=== PATIENT | female | born 1970 | race Caucasian/White ===

== ENCOUNTER → 2022-05-07 12:58 | Outpatient (CLI) | payer OTHER, SELFPAY ==
[2022-05-07 20:30] LABS: C-Reactive Protein Quant 0.6 mg/dL (<1.0)
[2022-05-07 20:41] LABS: Erythrocyte Sedimentation Rate 12 MM/HR (0-20)
[2022-05-07 20:42] LABS: Rheumatoid Factor < 8.6 IU/mL (<12.0)
[2022-05-09 16:22] LABS: ANA Screen, IFA Positive (.)
[2022-05-11 12:01] LABS: SS A Ro Sjogrens Antibody < 0.2 AI (0.0-0.9); SS B La Sjogrens Antibody 2.5 AI (0.0-0.9)
== END ==
PROVIDERS: PCP Family Medicine; Visit Provider Family Medicine
DX: M25.641 Stiffness of right hand, not elsewhere classified (principal); M79.641 Pain in right hand; M25.642 Stiffness of left hand, not elsewhere classified; M79.642 Pain in left hand
CPT/HCPCS: 85651; 86038; 86140; 86235; 86430

== ENCOUNTER → 2024-02-26 09:26 | Outpatient (CLI) | payer OTHER, SELFPAY ==
[2024-02-26 19:44] LABS: Add Manual Diff / Slide Review NO; Basophils Absolute Auto 100 /uL (0-100); Basophils Percent Auto 1.1 % (0-2); Eosinophils Absolute Auto 100 /uL (0-450); Eosinophils Percent Auto 2.1 % (2-4); Hematocrit 40.9 % (36-46); Hemoglobin 13.6 g/dL (12.0-16.0); Lymphocytes Absolute Auto 2200 /uL (1100-4500); Lymphocytes Percent Auto 36.2 % (25-40); Mean Corpuscular HGB Conc 33.4 % (30-36); Mean Corpuscular Hemoglobin 31.3 PG (26-34); Mean Corpuscular Volume 93.7 fL (80-100); Monocytes Absolute Auto 400 /uL (0-900); Monocytes Percent Auto 7.1 % (3-14); Neutrophils Absolute Auto 3200 /uL (1500-7000); Neutrophils Percent Auto 53.5 % (50-75); Platelet Count 276 X10^3/uL (150-400); Red Blood Cell Count 4.36 X10^6/uL (4.0-5.2); Red Cell Distribution Width 12.8 % (11.6-14.8)
[2024-02-26 19:47] LABS: BUN Creatinine Ratio 20.3 (6-22); Blood Urea Nitrogen 13 mg/dL (7-17); Calcium 9.6 mg/dL (8.4-10.2); Carbon Dioxide 29 mmol/L (22-32); Chloride 107 mmol/L (98-107); Cholesterol 259 mg/dL (140-199); Estimated Glomerular Filt Rate > 60 mL/min (>60); Glucose 105 mg/dL (70-100); HDL Cholesterol 56 mg/dL (40-60); HEMOLYSIS < 15 (0-50); LDL Cholesterol Calculated 166 mg/dL (<100); Potassium 4.1 mmol/L (3.4-5.1); Sodium 140 mmol/L (137-145); Triglycerides 187 mg/dL (35-150)
== END ==
PROVIDERS: PCP Family Medicine; Visit Provider Family Medicine
DX: Z13.89 Encounter for screening for other disorder (principal); Z13.6 Encounter for screening for cardiovascular disorders; Z13.0 Encounter for screening for diseases of the blood and blood-forming organs and certain disorders involving the immune mechanism; Z13.29 Encounter for screening for other suspected endocrine disorder; Z13.1 Encounter for screening for diabetes mellitus
CPT/HCPCS: 80048; 80061; 84443; 85025

== ENCOUNTER → 2024-03-04 08:49 | Outpatient (CLI) | payer OTHER, SELFPAY ==
--- NOTE | 2024-03-04 08:50 | DI.US.S_ITS ---
LIMITED ULTRASOUND OF LEFT BREAST: 03/04/2024 CLINICAL: Intermittent pain in left breast. Comparison is made to exam dated: 03/04/2024 mammogram - [facility]. Ultrasound of the left breast 2 o'clock region was performed on the area of interest. IMPRESSION: NEGATIVE There is no sonographic evidence of malignancy. There is no mammographic or sonographic abnormality seen in the left breast to correspond with the pain, however, clinical followup is recommended. Return to annual mammogram screening schedule is recommended. This exam was interpreted at Station ID: [id number]. Electronically Signed By: Keily Shoemaker M.D. lk/:03/04/2024 10:26:00 letter sent: Clinical Evaluation Ultrasound BI-RADS: 1 Negative
--- NOTE | 2024-03-04 08:50 | DI.MG.S_ITS ---
BILATERAL DIGITAL DIAGNOSTIC MAMMOGRAM 3D/2D: 03/04/2024 CLINICAL: Left breast pain. No prior exams were available for comparison. There are scattered areas of fibroglandular density in both breasts (category b / 25%-50% glandular tissue). No significant masses, calcifications, or other findings are seen in either breast. IMPRESSION: INCOMPLETE: NEEDS ADDITIONAL IMAGING EVALUATION There is no mammographic abnormality seen in the left breast to correspond with the pain, however, targeted ultrasound of the left breast is recommended and will be performed immediately following this exam. Based on Tyrer-Cuzick model (a risk assessment model), the patient's lifetime risk is 22.1% and her 10 year risk is 6.3%. If a patient has an elevated risk, a more comprehensive evaluation should be considered and/or a referral to a genetic counselor. The [employer], [employer], and NCCN Guidelines advise the consideration of Breast MRI as an adjunct to screening mammography in patients whose Lifetime risk to develop breast cancer is 20% or higher. This exam was interpreted at Station ID: [id number]. NOTE: For mammograms, a report in lay terms will be sent to the patient. Approximately 15% of breast malignancies will not be visualized mammographically. In the management of a palpable breast mass, a negative mammogram must not discourage biopsy of a clinically suspicious lesion. Electronically Signed By: Keily Shoemaker M.D. lk/:03/04/2024 09:48:02 ACR BI-RADS Category 0: Incomplete 3340F
== END ==
LOC: MAMMO 08:49
PROVIDERS: PCP Family Medicine; Referring Provider Family Medicine; Visit Provider Family Medicine
DX: R92.2 Inconclusive mammogram (principal); N64.4 Mastodynia; R92.323 Mammographic fibroglandular density, bilateral breasts
CPT/HCPCS: 76642; 77066; G0279

== ENCOUNTER 2024-06-04 07:53 | Day surgery (SDC) | payer OTHER, SELFPAY ==
[2024-06-04 08:50] VITALS: BP 107/72; PULSE 69; RESP 14; TEMP 36.8; O2SAT 99
[2024-06-04] MEDS: ONDANSETRON 4 MG/2 ML INJ IV (09:10)
--- NOTE | 2024-06-04 09:28 | P.HP_ITS ---
History of Present Illness History of Present Illness Date Patient Seen: 06/04/24 Time Patient Seen: 09:28 Chief complaint: SD Narrative: Linda is a 53-year-old woman who is here for her first screening colonoscopy. She has a grandmother who of colon cancer. She has no known first-degree family members with colon cancer. [facility] Medical History (Updated 06/04/24 @ 09:30 by Merritt Moon MD) Colon cancer screening Cellulitis Positive SHER (antinuclear antibody) Contact dermatitis Surgical History (Updated 12/29/23 @ 17:20 by Lulu Dial MD) H/O LEEP Social History Smoking Status: Never smoker additional social history: [employer] -- standing at work -- [place] was living in [place] for 20 yrs pain in left breast comes and goes mom had breast cancer 60 yo colon cancer screening: GM had colon cancer. has never had colonoscopy lives with and 11 yo son. [place]: no etoh: 2 glasses at wine at dinner 12/2023 Meds Home Medications and Allergies Home Medications Medication Instructions Recorded Confirmed Type sodium,potassium,mag sulfates 17.5 See Rx Instructions PO .COMPLEX 05/01/24 06/04/24 Rx gram-3.13 gram-1.6 gram oral soln #354 mL (Suprep Bowel Prep Kit) Allergies Allergy/AdvReac Type Severity Reaction Status Date / Time codeine Allergy Mild Verified 03/06/24 14:41 Exam Vital Signs (past 8 hours): - 06/04/24 08:50 Temperature 98.2 F Pulse Rate 69 Respiratory Rate 14 Blood Pressure 107/72 Pulse Oximetry 99 Oxygen Delivery Method Room Air Oxygen Delivery Method Room Air Const General: No acute distress Resp Effort & Inspection: normal respiratory effort Assessment & Plan Assessment and plan (1) Colon cancer screening: Status: Acute Plan Linda is a 53-year-old woman here for a colonoscopy for colon cancer screenin g. We reviewed the risks and benefits and she would like to proceed. Time-Based Coding :: [TOTAL MINUTES] spent with patient and on the chart (including review of chart, obtaining history, exam, reviewing outside data, placing orders, documenting exam and treatment plan, and counseling patient) on [DATE].
--- NOTE | 2024-06-04 09:59 | PM.OP.COLON ---
Operative Date/Time/Diagnoses Date of procedure: 06/04/24 Time of procedure: 09:59 Pre-op diagnosis: Colon cancer screening Post-op diagnosis: same Procedure & Clinicians Study performed: Colonoscopy Same procedure as scheduled: Yes Surgeon: Merritt Moon Procedure Notes Procedure in detail: Surgeon: Merritt Moon MD Anesthesia: Maria Elena Nicholson DO Procedure: The patient was brought to the endoscopy suite, placed in left lateral decubitus position. The patient was connected to monitoring devices. A time-out was performed. Sedation was administered. Once the patient was adequately sedated, a digital rectal exam was performed and was normal. The scope was then inserted and advanced to the cecum where the appendiceal orifice was identified and photographed. The scope was then slowly withdrawn over greater than 6 minutes. The mucosa was thoroughly inspected. No abnormalities were found. The scope was retroflexed in the rectum. No abnormalities were seen. The scope was straightened and removed. The patient was awakened and brought to recovery. Scope withdrawal time: 7 minutes Sedation time: 20 minutes EBL: 0 Findings: Normal colon Post-procedure Recommendations: Colonoscopy in 10 years Disposition: PACU
[2024-06-04 10:02] VITALS: BP 121/72; PULSE 66; RESP 17; TEMP 36.1; O2SAT 98
[2024-06-04 10:07] VITALS: BP 115/81; PULSE 61; RESP 17; TEMP 36.2; O2SAT 97
[2024-06-04 10:12] VITALS: BP 116/81; PULSE 65; RESP 21; TEMP 36.2; O2SAT 100
[2024-06-04 10:22] VITALS: BP 115/68; PULSE 65; RESP 15; TEMP 36.2; O2SAT 99
== END 2024-06-04 10:45 | disposition home or self-care (01) ==
PROVIDERS: PCP Family Medicine; Referring Provider Surgery; Visit Provider Surgery
PROC: 0DJD8ZZ Inspection of Lower Intestinal Tract, Via Natural or Artificial Opening Endoscopic (ICD-10-PCS; CPT 45378; principal; 2024-06-04 08:45)
DX: Z12.11 Encounter for screening for malignant neoplasm of colon (principal)
CPT/HCPCS: 45378; J2405; J2704

== ENCOUNTER → 2025-02-25 09:28 | Outpatient (CLI) | payer OTHER, SELFPAY ==
[2025-02-25 19:23] LABS: Add Manual Diff / Slide Review NO; Basophils Absolute Auto 0 /uL (0-100); Basophils Percent Auto 0.4 % (0-2); Eosinophils Absolute Auto 100 /uL (0-450); Eosinophils Percent Auto 1.3 % (2-4); Hematocrit 40.6 % (36-46); Hemoglobin 13.9 g/dL (12.0-16.0); Lymphocytes Absolute Auto 2100 /uL (1100-4500); Mean Corpuscular HGB Conc 34.2 % (30-36); Mean Corpuscular Hemoglobin 31.7 PG (26-34); Mean Corpuscular Volume 92.7 fL (80-100); Monocytes Absolute Auto 400 /uL (0-900); Monocytes Percent Auto 8.2 % (3-14); Neutrophils Absolute Auto 2800 /uL (1500-7000); Neutrophils Percent Auto 51.1 % (50-75); Platelet Count 259 X10^3/uL (150-400); Red Blood Cell Count 4.38 X10^6/uL (4.0-5.2); White Blood Cell Count 5.5 X10^3/uL (4.5-11.0)
[2025-02-25 19:36] LABS: Alanine Aminotransferase 40 IU/L (<35); Albumin 4.6 g/dL (3.5-5.0); Albumin Globulin Ratio 1.5 (1.0-2.8); Alkaline Phosphatase 68 U/L (38-126); Aspartate Aminotransferase 29 IU/L (14-36); BUN Creatinine Ratio 19.2 (6-22); Bilirubin Total 0.7 mg/dL (0.2-1.3); Blood Urea Nitrogen 15 mg/dL (7-17); C-Reactive Protein Quant < 0.5 mg/dL (<1.0); Carbon Dioxide 29 mmol/L (22-32); Chloride 105 mmol/L (98-107); Cholesterol 247 mg/dL (140-199); Estimated Glomerular Filt Rate > 60 mL/min (>60); Glucose 97 mg/dL (70-100); HDL Cholesterol 56 mg/dL (40-60); HEMOLYSIS < 15 (0-50); LDL Cholesterol Calculated 162 mg/dL (<100); Potassium 4.3 mmol/L (3.4-5.1); Sodium 140 mmol/L (137-145); Total Protein 7.6 g/dL (6.3-8.2); Triglycerides 144 mg/dL (35-150)
[2025-02-25 19:41] LABS: Hemoglobin A1C% w Est Avg Glu 5.3 % (4.0-6.0)
[2025-02-25 19:54] LABS: Erythrocyte Sedimentation Rate 11 MM/HR (0-20)
== END ==
PROVIDERS: PCP Family Medicine; Visit Provider Family Medicine
DX: M79.641 Pain in right hand (principal); M79.642 Pain in left hand; R76.8 Other specified abnormal immunological findings in serum; M25.641 Stiffness of right hand, not elsewhere classified; M25.642 Stiffness of left hand, not elsewhere classified; E78.2 Mixed hyperlipidemia; E66.9 Obesity, unspecified; R73.9 Hyperglycemia, unspecified
CPT/HCPCS: 80053; 80061; 83036; 85025; 85651; 86038; 86140; 86200; 86235